=== PATIENT | female | born 1980 | race Two or more races ===

== ENCOUNTER 2018-10-21 15:14 | Outpatient (CLI) | payer OTHER | END 2018-10-21 15:25 | disposition home or self-care (01) | LOC: SONOGRAMA 15:14 | DX: O02.0 Blighted ovum and nonhydatidiform mole (principal) ==

== ENCOUNTER 2018-10-24 08:35 | Day surgery (SDC) | payer OTHER | END 2018-10-24 18:50 | disposition home or self-care (01) | LOC: CIR.AMB 08:35 | DX: O02.1 Missed abortion (principal); Z3A.08 8 weeks gestation of pregnancy ==